=== PATIENT | female | born 1965 | race American Indian/Alaskan Native ===

== ENCOUNTER → 2016-12-28 23:07 | Emergency (ER) | payer OTHER ==
[2016-12-28 23:08] VITALS: BMI 41.1
== END | disposition left against medical advice (07) ==
LOC: ED 23:07
DX: Z02.89 Encounter for other administrative examinations (principal); R10.9 Unspecified abdominal pain

== ENCOUNTER 2017-06-15 15:08 | Emergency (ER) | payer OTHER ==
[2017-06-15 15:08] VITALS: BMI 41.1
[2017-06-15 15:18] VITALS: BP 129/75; PULSE 98; RESP 16; TEMP 98.1; O2SAT 97
[2017-06-15] MEDS ORDERED: Amoxicillin-Clav 875-125 mg Tab PO STA (15:40)
--- NOTE | 2017-06-15 15:40 | ED PDOC ---
Arrival/HPI - General Chief Complaint: Cough, Cold, Congestion Time Seen by Provider: 06/15/17 15:40 Historian: Patient - History of Present Illness Narrative History of Present Illness (Text): 06/15/17 15:40 This 51 yo female with pmh DM, presents to this ED c/o nasal congestion, and sinuses pressure x 3 days. Patient denies other complains, sob, cp, abdominal pain, maldonado, urinary symptoms, or abnormal gait. Time/Duration: Other (3 days) Quality: Aching Context: Home Past Medical History - Provider Review Nursing Documentation Reviewed: Yes - Infectious Disease Hx of Infectious Diseases: None - Tetanus Immunization Tetanus Immunization: Unknown - Past Medical History Past Medical History: No Previous - Cardiac Hx Cardiac Disorders: No - Pulmonary Hx Respiratory Disorders: No - Neurological Hx Neurological Disorder: No - HEENT Hx HEENT Disorder: No - Renal Hx Renal Disorder: No - Endocrine/Metabolic Hx Endocrine Disorders: Yes Hx Diabetes Mellitus Type 2: Yes (pre diabetic) - Hematological/Oncological Hx Blood Disorders: No - Integumentary Hx Dermatological Disorder: No - Musculoskeletal/Rheumatological Hx Musculoskeletal Disorders: No - Gastrointestinal Hx Gastrointestinal Disorders: No - Genitourinary/Gynecological Hx Genitourinary Disorders: No - Psychiatric Hx Depression: No Hx Emotional Abuse: No Hx Physical Abuse: No Hx Substance Use: No - Past Surgical History Past Surgical History: No Previous - Surgical History Hx Section: Yes Hx Hysterectomy: Yes - Anesthesia Hx Anesthesia: Yes Hx Anesthesia Reactions: No Hx Malignant Hyperthermia: No - Suicidal Assessment Feels Threatened In Home Enviroment: No Family/Social History - Physician Review Nursing Documentation Reviewed: Yes Family/Social History: Other (noncontributory) Smoking Status: Former Smoker Hx Alcohol Use: Yes Frequency of alcohol use: Socially Hx Substance Use: No Hx Substance Use Treatment: No Allergies/Home Meds Allergies/Adverse Reactions: Allergies No Known Allergies Allergy (Verified 06/15/17 15:14) Home Medications: Home Meds Medication Instructions Recorded Confirmed Metformin ER [Glucophage XR] 500 mg PO BID 06/15/17 06/15/17 Review of Systems - Review of Systems Constitutional: Normal. absent: Fatigue, Weight Change, Fevers Eyes: Normal ENT: Rhinorrhea, Sinus Congestion Respiratory: Normal. absent: SOB, Cough, Sputum, Wheezing Cardiovascular: Normal. absent: Chest Pain Gastrointestinal: Normal. absent: Abdominal Pain, Nausea, Vomiting Genitourinary Female: Normal. absent: Frequency, Hematuria, Vaginal Bleeding Musculoskeletal: Normal. absent: Back Pain Skin: Normal. absent: Rash Neurological: Normal. absent: Headache, Dizziness, Focal Weakness, Gait Changes , Speech Changes, Facial Droop, Disequilibrium, Seizure Endocrine: Normal Hemo/Lymphatic: Normal Psychiatric: Normal Physical Exam Vital Signs Temp Pulse Resp BP Pulse Ox 06/15/17 15:18 98.1 F 98 H 16 129/75 97 Temperature: Afebrile Blood Pressure: Normal Pulse: Regular Respiratory Rate: Normal Appearance: Positive for: Well-Appearing, Non-Toxic, Comfortable Pain Distress: None Mental Status: Positive for: Alert and Oriented X 3 - Systems Exam Head: Present: Atraumatic, Normocephalic, Other (Mild frontal and maxiallry tenderness. No facial swelling, echymosis, or erythema) Pupils: Present: PERRL Extroacular Muscles: Present: EOMI Conjunctiva: Present: Normal Ears: Present: Normal, NORMAL TM, Normal Canal. No: Erythema, TM Bulging, Fluid Mouth: Present: Moist Mucous Membranes Pharnyx: Present: Normal. No: ERYTHEMA, EXUDATE, TONSILS ENLARGED Nose (External): Present: Atraumatic Nose (Internal): Present: Rhinorrhea Neck: Present: Normal Range of Motion Respiratory/Chest: Present: Clear to Auscultation, Good Air Exchange. No: Respiratory Distress, Accessory Muscle Use Cardiovascular: Present: Regular Rate and Rhythm, Normal S1, S2. No: Murmurs Abdomen: Present: Normal Bowel Sounds. No: Tenderness, Distention, Peritoneal Signs Back: Present: Normal Inspection Upper Extremity: Present: Normal Inspection. No: Cyanosis, Edema Lower Extremity: Present: Normal Inspection. No: Edema Neurological: Present: GCS=15, CN II-XII Intact, Speech Normal Skin: Present: Warm, Dry, Normal Color. No: Rashes Psychiatric: Present: Alert, Oriented x 3, Normal Insight, Normal Concentration Medical Decision Making ED Course and Treatment: 06/15/17 16:10 Patient is resting comfortably, and is in no acute distress. Patient was instructed to follow up with PMD in 1-2 days for further evaluation 06/15/17 16:15 Patient was recommended to f/u ENT, and to avoid driving or operate machinery when patient takes Promethazine. Re-evaluation Time: 16:10 Reassessment Condition: Re-examined, Improved - Medication Orders Current Medication Orders: Discontinued Medications Amoxicillin/Clavulanate Potassium (Augmentin 875 Mg-125 Mg Tab) 1 tab PO STAT STA PRN Reason: Protocol Stop: 06/15/17 15:41 Promethazine HCl (Phenergan Syrup) 12.5 mg PO STAT STA Stop: 06/15/17 15:42 Disposition/Present on Arrival - Present on Arrival Any Indicators Present on Arrival: No History of DVT/PE: No History of Uncontrolled Diabetes: No Urinary Catheter: No History of Decub. Ulcer: No History Surgical Site Infection Following: None - Disposition Have Diagnosis and Disposition been Completed?: Yes Diagnosis: Sinusitis Disposition: HOME/ ROUTINE Disposition Time: 16:10 Patient Plan: Discharge Patient Problems: Current Active Problems Problem Status Onset Sinusitis Acute Condition: GOOD Discharge Instructions (ExitCare): Sinusitis (ED) Additional Instructions: Call private doctor for follow up visit in 1-2 days. Take medication as instructed. Do not drive or operate machinery when you take Pheneregan . Return to emergency if symptoms worsen. Prescriptions: Amoxicillin/Clavulanate [Augmentin 875 MG-125 MG] 1 tab PO BID #20 tab Promethazine [Phenergan Syrup] 10 ml PO Q6 PRN #120 ml PRN Reason: Cough And Congestion Referrals: Stefanie Sung, [Primary Care Provider] - Follow up with primary Bunny Bashir DO [Staff Provider] - Follow up with primary Forms: [employer] (Algerian), WORK NOTE
[2017-06-15] MEDS ORDERED: Promethazine 6.25 MG/5 ML CUP PO STA (15:41)
== END 2017-06-15 16:23 | disposition home or self-care (01) ==
LOC: ED 15:08
DX: J32.9 Chronic sinusitis, unspecified (principal); E11.9 Type 2 diabetes mellitus without complications; Z79.84 Long term (current) use of oral hypoglycemic drugs; Z87.891 Personal history of nicotine dependence

== ENCOUNTER 2017-10-30 07:36 | Emergency (ER) | payer OTHER ==
[2017-10-30 07:54] VITALS: BP 131/75; PULSE 82; RESP 18; TEMP 97.5; O2SAT 96; BMI 43.6
--- NOTE | 2017-10-30 08:09 | ED PDOC ---
Arrival/HPI - General Chief Complaint: Cough, Cold, Congestion Time Seen by Provider: 10/30/17 07:55 Historian: Patient - History of Present Illness Time/Duration: Other (3 days) Symptom Onset: Gradual Symptom Course: Worsening Severity Level: Mild Activities at Onset: Rest Associated Symptoms (Text): 10/30/17 08:05 Patient complains of a three-day history of a cough productive of yellow sputum with URI symptoms. No dyspnea. No wheezing. No fever or chills. She developed some myalgias and arthralgias. She needs a note for work. She wants antibiotics. 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) - Renal Hx Renal Disorder: No - Endocrine/Metabolic Hx Endocrine Disorders: Yes Hx Diabetes Mellitus Type 2: Yes (pre diabetic) - Hematological/Oncological Hx Blood Disorders: No - Integumentary Hx Dermatological Disorder: No - Musculoskeletal/Rheumatological Hx Musculoskeletal Disorders: No - Gastrointestinal Hx Gastrointestinal Disorders: No - Genitourinary/Gynecological Hx Genitourinary Disorders: No - Psychiatric Hx Psychophysiologic Disorder: No Hx Depression: No Hx Emotional Abuse: No Hx Physical Abuse: No Hx Substance Use: No - Past Surgical History Past Surgical History: No Previous - Surgical History Hx Section: Yes Hx Hysterectomy: Yes - Anesthesia Hx Anesthesia: Yes Hx Anesthesia Reactions: No Hx Malignant Hyperthermia: No - Suicidal Assessment Feels Threatened In Home Enviroment: No Family/Social History - Physician Review Nursing Documentation Reviewed: Yes Family/Social History: Unknown Family HX Smoking Status: Former Smoker (Quit smoking 2 years ago) Hx Alcohol Use: Yes Hx Substance Use: No Hx Substance Use Treatment: No Allergies/Home Meds Allergies/Adverse Reactions: Allergies No Known Allergies Allergy (Verified 10/30/17 07:54) Home Medications: Home Meds Medication Instructions Recorded Confirmed Metformin ER [Glucophage XR] 500 mg PO BID 06/15/17 10/30/17 Review of Systems - Physician Review All systems were reviewed & negative as marked: Yes Physical Exam Vital Signs Temp Pulse Resp BP Pulse Ox 10/30/17 07:52 97.5 F L 82 18 131/75 96 Temperature: Afebrile Blood Pressure: Normal Pulse: Regular Respiratory Rate: Normal Appearance: Positive for: Well-Appearing, Non-Toxic, Uncomfortable Pain Distress: None Mental Status: Positive for: Alert and Oriented X 3 - Systems Exam Head: Present: Atraumatic, Normocephalic Pupils: Present: PERRL Extroacular Muscles: Present: EOMI Conjunctiva: Present: Normal Ears: Present: NORMAL TM, Normal Canal. No: Erythema, TM Bulging Mouth: Present: Moist Mucous Membranes Pharnyx: No: ERYTHEMA, EXUDATE, TONSILS ENLARGED Neck: Present: Normal Range of Motion Respiratory/Chest: Present: Clear to Auscultation, Good Air Exchange. No: Respiratory Distress, Accessory Muscle Use Cardiovascular: Present: Regular Rate and Rhythm, Normal S1, S2. No: Murmurs Neurological: Present: GCS=15, CN II-XII Intact, Speech Normal Skin: Present: Warm, Dry, Normal Color. No: Rashes Disposition/Present on Arrival - Present on Arrival Any Indicators Present on Arrival: No History of DVT/PE: No History of Uncontrolled Diabetes: No Urinary Catheter: No History of Decub. Ulcer: No History Surgical Site Infection Following: None - Disposition Have Diagnosis and Disposition been Completed?: Yes Diagnosis: Bronchitis Disposition: HOME/ ROUTINE Disposition Time: 08:10 Patient Plan: Discharge Condition: GOOD Discharge Instructions (ExitCare): Acute Bronchitis Additional Instructions: Symptomatic treatment. Tylenol or Advil as directed on bottle as needed. Follow- up with PMD. Follow up in ER as needed. Prescriptions: Amoxicillin [Amoxil 250 mg Cap] 250 mg PO TID #21 cap Benzonatate [Tessalon Perles] 100 mg PO Q8 #30 sgl Forms: [employer] (Portuguese), WORK NOTE
== END 2017-10-30 08:32 | disposition home or self-care (01) ==
LOC: ED 07:36
DX: J40 Bronchitis, not specified as acute or chronic (principal); E11.9 Type 2 diabetes mellitus without complications; Z87.891 Personal history of nicotine dependence

== ENCOUNTER 2018-02-12 11:55 | Emergency (ER) | payer OTHER ==
[2018-02-12 11:56] VITALS: BMI 43.6
[2018-02-12 13:01] VITALS: TEMP 99.7; O2SAT 98
--- NOTE | 2018-02-12 13:39 | ED PDOC ---
Arrival/HPI - History of Present Illness Symptom Onset: Sudden Symptom Course: Unchanged Quality: Stabbing <Yaa De La Cruz - Last Filed: 02/12/18 16:31> <Ho Enamorado DO - Last Filed: 02/12/18 17:37> - General Chief Complaint: Abnormal Skin Integrity Time Seen by Provider: 02/12/18 12:58 - History of Present Illness Narrative History of Present Illness (Text): 52 year old female presents with a abscess under the left axilla that started 4 days ago. Patient reports that she noticed it while shaving and has a sharp, stabbing pain when she raises her left arm. She denies having any fever. She reports having an abscess about one year ago and it was I&D at that time. Patient feels well otherwise. 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) - Renal Hx Renal Disorder: No - Endocrine/Metabolic Hx Endocrine Disorders: Yes Hx Diabetes Mellitus Type 2: Yes (pre diabetic) - Hematological/Oncological Hx Blood Disorders: Yes Hx Blood Transfusions: Yes - Integumentary Hx Dermatological Disorder: No - Musculoskeletal/Rheumatological Hx Musculoskeletal Disorders: No - Gastrointestinal Hx Gastrointestinal Disorders: No - Genitourinary/Gynecological Hx Genitourinary Disorders: Yes Other/Comment: placenta accreta - Psychiatric Hx Psychophysiologic Disorder: No Hx Depression: No Hx Emotional Abuse: No Hx Physical Abuse: No Hx Substance Use: No - Past Surgical History Past Surgical History: No Previous - Surgical History Hx Section: Yes Hx Hysterectomy: Yes - Anesthesia Hx Anesthesia: Yes Hx Anesthesia Reactions: No Hx Malignant Hyperthermia: No - Suicidal Assessment Feels Threatened In Home Enviroment: No <Yaa De La Cruz - Last Filed: 02/12/18 16:31> Family/Social History - Physician Review Nursing Documentation Reviewed: Yes Family/Social History: Unknown Family HX Smoking Status: Former Smoker Hx Alcohol Use: Yes Hx Substance Use: No Hx Substance Use Treatment: No <Yaa De La Cruz - Last Filed: 02/12/18 16:31> Allergies/Home Meds <Yaa De La Cruz - Last Filed: 02/12/18 16:31> <Ho Enamorado DO - Last Filed: 02/12/18 17:37> Allergies/Adverse Reactions: Allergies No Known Allergies Allergy (Verified 02/12/18 12:50) Home Medications: Home Meds Medication Instructions Recorded Confirmed MetFORMIN ER [Glucophage XR] 500 mg PO BID 06/15/17 10/30/17 Review of Systems - Physician Review All systems were reviewed & negative as marked: Yes - Review of Systems Constitutional: Normal Respiratory: Normal Cardiovascular: Normal Gastrointestinal: Normal Musculoskeletal: Normal Skin: Abscess Neurological: Normal Endocrine: Normal <Yaa De La Cruz Last Filed: 02/12/18 16:31> Physical Exam Temperature: Afebrile Blood Pressure: Normal Pulse: Regular Respiratory Rate: Normal Appearance: Positive for: Well-Appearing Mental Status: Positive for: Alert and Oriented X 3 - Systems Exam Head: Present: Atraumatic Pupils: Present: PERRL Neck: Present: Normal Range of Motion Respiratory/Chest: Present: Wheezes (mild) Cardiovascular: Present: Regular Rate and Rhythm Abdomen: Present: Normal Bowel Sounds Upper Extremity: Present: Normal Inspection Lower Extremity: Present: Normal Inspection Neurological: Present: GCS=15, Motor Func Grossly Intact, Normal Sensory Function Skin: Present: Warm, Dry Psychiatric: Present: Alert, Oriented x 3, Normal Insight, Normal Concentration <Yaa De La Cruz - Last Filed: 02/12/18 16:31> - Systems Exam Skin: Present: Abscess (1cm in diameter) <Ho Enamorado DO - Last Filed: 02/12/18 17:37> Vital Signs Temp Pulse Resp BP Pulse Ox 02/12/18 15:55 80 16 122/73 02/12/18 13:55 89 18 121/68 98 02/12/18 12:57 99.7 F H 94 H 18 124/72 98 Medical Decision Making <Yaa De La Cruz - Last Filed: 02/12/18 16:31> <Ho Enamorado DO - Last Filed: 02/12/18 17:37> ED Course and Treatment: Impression: 52 year old female with no relevant past medical history presents with an abscess under her armpit. Assessment: abscess under armpit Plan: I and D for abscess was performed. She will be prescribed bactrim 160mg/ 800mg PO BID for 7 days, keflex 500 mg PO TID for 7 days, and Motrin 600 mg PO Q6 PRN. She should follow up with her PCP in 2 days to get packing removed. Continue to put warm compresses on prior abscess site. 02/12/18 15:57 02/12/18 16:06 (Yaa De La Cruz) - Medication Orders Current Medication Orders: Discontinued Medications Morphine Sulfate (Morphine) 4 mg IM STAT STA Stop: 02/12/18 14:55 Last Admin: 02/12/18 15:02 Dose: 4 mg MAR Pain Assessment Document 02/12/18 15:02 ALAN (Rec: 02/12/18 15:03 ALAN [id number]) Pain Reassessment Is this a pain reassessment? Yes Presence of Pain Presence of Pain Yes Pain Scale Used Pain Scale Used Numeric Location Left, Right or Bilateral Left Description Intensity of Pain at present 10 IM Administration Charges Document 02/12/18 15:02 ALAN (Rec: 02/12/18 15:03 ALAN [id number]) Injection Site MAR Injection Site Left Deltoid Charges for Administration # of IM Administrations 1 - PA / NECK FITTER / Resident Statement LAURA has reviewed & agrees with the documentation as recorded. LAURA has examined the patient and agrees with the treatment plan. <Yaa De La Cruz - Last Filed: 02/12/18 16:31> Disposition/Present on Arrival - Present on Arrival Any Indicators Present on Arrival: No History of DVT/PE: No History of Uncontrolled Diabetes: No Urinary Catheter: No History of Decub. Ulcer: No History Surgical Site Infection Following: None - Disposition Have Diagnosis and Disposition been Completed?: Yes Disposition Time: 16:32 Patient Plan: Discharge <Yaa De La Cruz - Last Filed: 02/12/18 16:31> - Disposition Disposition Time: 14:20 <Ho Enamorado DO - Last Filed: 02/12/18 17:37> - Disposition Diagnosis: Abscess Disposition: HOME/ ROUTINE Condition: STABLE Discharge Instructions (ExitCare): Skin Abscess, Abscess Incision and Drainage (DC) Additional Instructions: FANI LEAL, thank you for letting us take care of you today. Your provider was Ho Enamorado DO and you were treated for BOIL UNDER (R)ARM. The emergency medical care you received today was directed at your acute symptoms. If you were prescribed any medication, please fill it and take as directed. It may take several days for your symptoms to resolve. Return to the Emergency Department if your symptoms worsen, do not improve, or if you have any other problems. Please contact your doctor or call one of the physicians/clinics you have been referred to that are listed on the Patient Visit Information form that is included in your discharge packet. Bring any paperwork you were given at discharge with you along with any medications you are taking to your follow up visit. Our treatment cannot replace ongoing medical care by a primary care provider outside of the emergency department. Thank you for allowing the [employer] team to be part of your care today. Follow up with your primary care doctor in 2 days for a wound check and packing removal. Prescriptions: Cephalexin [cephalexin] 500 mg PO TID #21 cap Ibuprofen [Motrin] 600 mg PO Q6 PRN #20 tab PRN Reason: Pain, Moderate (4-7) Sulfamethoxazole/Trimethoprim [Bactrim DS 800 mg-160 mg] 1 tab PO BID #14 tab Referrals: Stefanie Sung, [Primary Care Provider] - Follow up with primary Forms: [employer] (Gabonese)
[2018-02-12] MEDS ORDERED: Morphine 4 mg/ml ISec IM STA (14:54)
[2018-02-12 15:56] VITALS: BP 122/73; PULSE 80; RESP 16
== END 2018-02-12 15:55 | disposition home or self-care (01) ==
LOC: ED 11:55
DX: L02.412 Cutaneous abscess of left axilla (principal)
CPT/HCPCS: 10060; 96372; 99282; J2270

== ENCOUNTER 2018-02-14 12:25 | Emergency (ER) | payer OTHER ==
[2018-02-14 12:26] VITALS: BMI 43.6
[2018-02-14 12:57] VITALS: RESP 18; TEMP 98.5
--- NOTE | 2018-02-14 13:30 | ED PDOC ---
Arrival/HPI - General Chief Complaint: Wound Check Time Seen by Provider: 02/14/18 12:26 Historian: Patient - History of Present Illness Narrative History of Present Illness (Text): 02/14/18 13:26 52 y/o female, pmh including dm, nkda, post menopausal with total hysterectomy, c/o lt. axillary wound check s/p I&D about 2 days ago. pt. stated that she doesn't like the bactrim and keflex combo as it is causing her feeling discomfort, request to have antibiotic change. Pt. has no fever or chills, stated that she feels much better after the procedure, no numbness or tingling, no palpitation, no night sweat, no dizziness, no other medical or psychological complaints. 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) - Renal Hx Renal Disorder: No - Endocrine/Metabolic Hx Endocrine Disorders: Yes Hx Diabetes Mellitus Type 2: Yes (pre diabetic) - Hematological/Oncological Hx Blood Disorders: Yes Hx Blood Transfusions: Yes - Integumentary Hx Dermatological Disorder: No - Musculoskeletal/Rheumatological Hx Musculoskeletal Disorders: No - Gastrointestinal Hx Gastrointestinal Disorders: No - Genitourinary/Gynecological Hx Genitourinary Disorders: Yes Other/Comment: placenta accreta - Psychiatric Hx Psychophysiologic Disorder: No Hx Depression: No Hx Emotional Abuse: No Hx Physical Abuse: No Hx Substance Use: No - Past Surgical History Past Surgical History: No Previous - Surgical History Hx Section: Yes Hx Hysterectomy: Yes - Anesthesia Hx Anesthesia: Yes Hx Anesthesia Reactions: No Hx Malignant Hyperthermia: No - Suicidal Assessment Feels Threatened In Home Enviroment: No Family/Social History - Physician Review Nursing Documentation Reviewed: Yes Family/Social History: Unknown Family HX Smoking Status: Former Smoker Hx Alcohol Use: Yes Hx Substance Use: No Hx Substance Use Treatment: No Allergies/Home Meds Allergies/Adverse Reactions: Allergies No Known Allergies Allergy (Verified 02/12/18 12:50) Home Medications: Home Meds Medication Instructions Recorded Confirmed MetFORMIN ER [Glucophage XR] 500 mg PO BID 06/15/17 10/30/17 Review of Systems - Review of Systems Constitutional: absent: Fatigue, Fevers Eyes: absent: Vision Changes ENT: absent: Hearing Changes Respiratory: absent: SOB, Cough Cardiovascular: absent: Chest Pain Gastrointestinal: absent: Abdominal Pain, Nausea, Vomiting Musculoskeletal: absent: Arthralgias, Back Pain Skin: Skin Lesions, Abscess. absent: Rash, Pruritis, Laceration, Ulcer, Cellulitis Neurological: absent: Headache, Dizziness Psychiatric: absent: Anxiety, Depression, Suicidal Ideation Physical Exam Vital Signs Reviewed: Yes Vital Signs Temp Pulse Resp BP Pulse Ox 02/14/18 12:53 98.5 F 90 18 130/85 97 Temperature: Afebrile Blood Pressure: Normal Pulse: Regular Respiratory Rate: Normal Appearance: Positive for: Well-Appearing, Non-Toxic, Comfortable Pain Distress: Mild Mental Status: Positive for: Alert and Oriented X 3 - Systems Exam Head: Present: Atraumatic, Normocephalic Pupils: Present: PERRL Extroacular Muscles: Present: EOMI Conjunctiva: Present: Normal Mouth: Present: Moist Mucous Membranes Neck: Present: Normal Range of Motion Respiratory/Chest: Present: Clear to Auscultation, Good Air Exchange. No: Respiratory Distress, Accessory Muscle Use Cardiovascular: Present: Regular Rate and Rhythm, Normal S1, S2. No: Murmurs Abdomen: No: Tenderness, Distention, Peritoneal Signs Back: Present: Normal Inspection Upper Extremity: Present: Normal Inspection. No: Cyanosis, Edema Lower Extremity: Present: Normal Inspection. No: Edema Neurological: Present: GCS=15, CN II-XII Intact, Speech Normal Skin: Present: Warm, Dry, Rashes (lt. axillary region visible healing approx. 0.75cm incision wound with no cellulitis or streaking, packing is on the site with less than 3cm packing. ), Normal Color Psychiatric: Present: Alert, Oriented x 3, Normal Insight, Normal Concentration Medical Decision Making ED Course and Treatment: 02/14/18 13:28 -old packing removed, wound healing well and dry, no need for repacking as the wound is healing, gauze dressing -Discharge home with clindamycin, discontinue keflex/bactrim ds as you experience adverse reaction from it, motrin for pain, follow up with your own pmd and general surgeon within 3-4 days, return to the ER for any new or worsening signs or symptoms. - PA / ACCOUNT SERVICES ANALYST / Resident Statement MD/DO has reviewed & agrees with the documentation as recorded. Disposition/Present on Arrival - Present on Arrival Any Indicators Present on Arrival: No History of DVT/PE: No History of Uncontrolled Diabetes: No Urinary Catheter: No History of Decub. Ulcer: No History Surgical Site Infection Following: None - Disposition Have Diagnosis and Disposition been Completed?: Yes Diagnosis: Wound check, abscess Disposition: HOME/ ROUTINE Disposition Time: 13:30 Patient Plan: Discharge Condition: GOOD Additional Instructions: -Discharge home with clindamycin, discontinue keflex/bactrim ds as you experience adverse reaction from it, motrin for pain, follow up with your own pmd and general surgeon within 3-4 days, return to the ER for any new or worsening signs or symptoms. Prescriptions: Clindamycin [Cleocin] 300 mg PO TID #21 cap Ibuprofen [Motrin] 600 mg PO TID #21 tab Referrals: Stefanie Sung, [Primary Care Provider] - Follow up with primary Paolo Telles MD [Staff Provider] - Follow up with primary [facility] at [facility] [place] [Outside] - Follow up with primary Forms: WORK NOTE
[2018-02-14 13:36] VITALS: BP 125/72; PULSE 82; O2SAT 99
== END 2018-02-14 13:35 | disposition home or self-care (01) ==
LOC: ED 12:25
DX: Z48.89 Encounter for other specified surgical aftercare (principal)